=== PATIENT | male | born 1990 | race Caucasian/White ===

== ENCOUNTER 2018-04-12 13:11 | Emergency (ER) | payer OTHER, SELFPAY ==
[2018-04-12] MEDS ORDERED: Ketorolac Tromethamine 30 MG/ML VIAL ONE (14:26)
[2018-04-12] MEDS ORDERED: Adacel (T-DAP) 0.5 ML VIAL ONE (14:26)
[2018-04-12 15:23] LABS: #Basophils 0.1 thou/uL (0.0-0.2); #Eosinphils 0.1 thou/uL (0.0-0.7); #Lymphocytes 1.6 thou/uL (1.20-3.40); #Monocytes 0.6 thou/uL (0.11-0.59); #Neutrophils 11.3 thou/uL (1.40-6.50); %Basophils 0.4 % (0.0-1.0); %Eosinophils 0.6 % (0.0-10.0); %Lymphocytes 11.8 % (21.0-51.0); %Monocytes 4.5 % (0.0-10.0); %Neutrophils 82.6 % (42.0-75.0); Hemoglobin 13.7 g/dL (14.0-18.0); Mean Corpuscular HGB CONC 35.3 g/dL (32.0-36.0); Mean Corpuscular Hemoglobin 30.7 pg (27.0-31.0); Mean Corpuscular Volume 86.9 fL (78.0-98.0); Mean Platelet Volume 6.9 fL (7.4-10.4); Platelet Count 305 thou/uL (130-400); RBC Distribution Width 10.9 % (11.5-14.5); Red Blood Cell (RBC) Count 4.48 mill/uL (4.70-6.10); White Blood Cell (WBC) Count 13.7 thou/uL (4.8-10.8)
[2018-04-12 15:41] LABS: ALT (SGPT) 32 U/L (8-55); AST (SGOT) 23 U/L (5-34); Albumin 4.4 g/dL (3.5-5.0); Alkaline Phosphatase 85 U/L (40-150); Anion Gap 11 mmol/L (10-20); BUN (Urea Nitrogen) 15 mg/dL (8.9-20.6); Bilirubin, Total 0.5 mg/dL (0.2-1.2); Calc. Creatinine Clearance 0 mL/min (70-130); Calcium 9.5 mg/dL (7.8-10.44); Carbon Dioxide 26 mmol/L (22-29); Chloride 103 mmol/L (98-107); Estimated GFR-MDRD 84; Globulin 3.3 g/dL (2.4-3.5); Glucose 93 mg/dL (70-105); Potassium 4.3 mmol/L (3.5-5.1); Protein, Total 7.7 g/dL (6.0-8.3); Sodium 136 mmol/L (136-145)
[2018-04-12] MEDS ORDERED: Piperacillin/Tazobactam 4.5 GM VIAL ONE (16:02)
--- NOTE | 2018-04-13 08:01 | CON ---
DATE OF CONSULTATION: 04/12/2018 CHIEF COMPLAINT: Right thumb pain. HISTORY OF PRESENT ILLNESS: Mr. Pfeiffer is a 28-year-old male who began having thumb pain 3 days ago. This worsened significantly over the last 2 days. He began having swelling, erythema, and increased pain. He had a small callus over the palmar aspect of the thumb. This is where his pain began. He presented to an urgent care yesterday and antibiotics were prescribed. He failed to obtain these be cause he says they were expensive. He worsened overnight. He presented to the Emergency Department today. He has been afebrile since arrival. An IV is being started currently. PAST MEDICAL HISTORY: He denies active medical problems. He has had a previous abscess on the right forearm. PAST SURGICAL HISTORY: Negative. SOCIAL HISTORY: The patient occasionally uses alcohol. No cigarettes. No drug use. The patient wo rks for [employer]. FAMILY MEDICAL HISTORY: Noncontributory. REVIEW OF SYSTEMS: Positive for severe right hand and arm pain. IMAGES: X-rays of the right hand demonstrate no bony abnormality. The patient does have soft tissue swelling of the thumb. PHYSICAL EXAMINATION: VITAL SIGNS: Stable. The patient is afebrile, normotensive, 98% on room air. GENERAL: He is alert and oriented, sitting upright, in no apparent distress. RESPIRATORY: Breathing comfortably. ABDOMEN: Soft, nontender, nondistended. MUSCULOSKELETAL: The patient's right hand has fusiform swelling. He has pain to palpation. He is t pilo to palpation along the flexor tendon as well as dorsally along the extensor tendon. He is able to very minimally flex the thumb. He rests in a slightly flexed posture. He has mild tenderness al brian the palm as well. There is no significant edema or swelling of the forearm. No open wounds. No draining purulence. Sensation is intact distally. Two-second capillary refill. IMPRESSION: Right thumb flexor tenosynovitis. PLAN: At this point, I had a long discussion with the patient regarding the severity of his infectio n. He needs surgical irrigation and debridement as well as intravenous antibiotics. He will obtain an IV and be given vancomycin and Zosyn in the Emergency Department. Unfortunately, he declines surg rock and declines to be admitted to the hospital at this point. He repeatedly tells me he needs to go home to arrange care for his dog and to talk to his work and boss. I emphasized the severity of inf ection repeatedly. Explained to him that he could have worsening of his infection that can lead to n ecrosis of the thumb and possible amputation. His infection is already too widespread to have any si gnificant chance of resolving with oral antibiotics. I encouraged him to come back to the hospital o nce he makes his arrangements for surgical treatment. Questions were answered. Again, the patient i s choosing to decline surgery against medical advice.
== END 2018-04-12 18:52 | disposition home or self-care (01) ==
LOC: ERS 13:11
DX: M65.841 Other synovitis and tenosynovitis, right hand (principal); F32.9 Major depressive disorder, single episode, unspecified; F90.9 Attention-deficit hyperactivity disorder, unspecified type; Z87.891 Personal history of nicotine dependence
CPT/HCPCS: 36415; 80053; 85025; 87040; 87149; 90471; 90715; 94760; 96365; 96367; 96375; J1885; J2543; J3370

== ENCOUNTER 2018-04-13 10:40 | Inpatient (IN) | payer SELFPAY ==
[2018-04-13 11:19] LABS: #Eosinphils 0.1 thou/uL (0.0-0.7); #Lymphocytes 1.6 thou/uL (1.20-3.40); #Monocytes 0.5 thou/uL (0.11-0.59); #Neutrophils 10.4 thou/uL (1.40-6.50); %Basophils 0.2 % (0.0-1.0); %Eosinophils 0.5 % (0.0-10.0); %Lymphocytes 12.4 % (21.0-51.0); %Monocytes 3.8 % (0.0-10.0); %Neutrophils 83.1 % (42.0-75.0); Hemoglobin 13.7 g/dL (14.0-18.0); Mean Corpuscular HGB CONC 34.9 g/dL (32.0-36.0); Mean Corpuscular Hemoglobin 30.5 pg (27.0-31.0); Mean Corpuscular Volume 87.5 fL (78.0-98.0); Platelet Count 283 thou/uL (130-400); RBC Distribution Width 11.1 % (11.5-14.5); Red Blood Cell (RBC) Count 4.48 mill/uL (4.70-6.10); White Blood Cell (WBC) Count 12.5 thou/uL (4.8-10.8)
[2018-04-13 11:33] LABS: ALT (SGPT) 28 U/L (8-55); AST (SGOT) 20 U/L (5-34); Albumin 4.3 g/dL (3.5-5.0); Alkaline Phosphatase 80 U/L (40-150); Anion Gap 12 mmol/L (10-20); BUN (Urea Nitrogen) 13 mg/dL (8.9-20.6); Bilirubin, Total 0.5 mg/dL (0.2-1.2); Calc. Creatinine Clearance 0 mL/min (70-130); Calcium 9.6 mg/dL (7.8-10.44); Carbon Dioxide 25 mmol/L (22-29); Chloride 102 mmol/L (98-107); Estimated GFR-MDRD 90; Globulin 3.6 g/dL (2.4-3.5); Glucose 100 mg/dL (70-105); Protein, Total 7.9 g/dL (6.0-8.3); Sodium 135 mmol/L (136-145)
[2018-04-13] MEDS ORDERED: Piperacillin/Tazobactam 4.5 GM VIAL ONE (12:06)
--- NOTE | 2018-04-13 12:16 | HP ---
CHIEF COMPLAINT: Right thumb pain. HISTORY OF PRESENT ILLNESS: Mr. Pfeiffer is a 28-year-old male who I saw yesterday afternoon in the [facility] department. At that point, the patient had flexor tenosynovitis of the right thumb which was worsening. He had been prescribed antibiotics from an urgent care previously, but did not fill this. Yesterday I recommended surgical intervention as well as admission for intravenous antibiotics. Un fortunately, the patient declined that treatment and left AMA. He now has returned back to the emerg ency department with worsening pain. He has a worsening infection of the thumb and now desires surgi gab intervention. No new complaints, but he does have worsening of his symptoms from yesterday. He was prescribed antibiotics again yesterday, but did not fill these and has not started antibiotics. He was given a dose of vancomycin and Zosyn in the emergency room yesterday. PAST MEDICAL HISTORY: Negative other than previous abscess of forearm. PAST SURGICAL HISTORY: Negative. SOCIAL HISTORY: The patient denies tobacco, alcohol, or drug use. FAMILY MEDICAL HISTORY: Noncontributory. REVIEW OF SYSTEMS: Positive for severe right thumb pain. PHYSICAL EXAMINATION: VITAL SIGNS: Afebrile currently. Normotensive 98% on room air. GENERAL: He is alert and oriented, no apparent distress, sitting upright. RESPIRATORY: Breathing comfortably. ABDOMEN: Soft, nontender, nondistended. MUSCULOSKELETAL: The patient's right thumb has fusiform swelling. He is unable to flex and extend t he digit. He has palmar tenderness. He has erythema and warmth of the thumb. No open wounds or maris inage. Sensation is somewhat diminished in the tip of the thumb. Two second capillary refill. IMPRESSION: Advanced right thumb flexor tenosynovitis now chronic. PLAN: At this point, the patient needs urgent irrigation and debridement of the thumb. I will take him to the operating room for this. He will need to have long-term intravenous antibiotics. He has a severe infection and will likely need possibly further surgery. He is aware of the risk and benefi ts of surgery. He has made his problem worse by putting off surgery and going home last night. We w ill start vancomycin and Zosyn and get him to the operating room today. He will remain n.p.o. He wi ll have pain control.
[2018-04-13] MEDS ORDERED: Milk Of Magnesia 30 ML UDCUP PO PRN (12:53)
[2018-04-13] MEDS ORDERED: Ondansetron HCl/PF 4 MG/2 ML Vial IV PRN (12:53)
[2018-04-13] MEDS ORDERED: Communication Order-Pharmacy FS SCH (13:00)
[2018-04-13] MEDS ORDERED: Morphine 10 MG/ML VIAL ONE (13:06)
--- NOTE | 2018-04-13 13:16 | OP ---
DATE OF OPERATION: 04/13/2018 OPERATION: Irrigation and debridement of right thumb flexor tenosynovitis. PREOPERATIVE DIAGNOSIS: Chronic right thumb flexor tenosynovitis. POSTOPERATIVE DIAGNOSIS: Chronic right thumb flexor tenosynovitis. COMPLICATIONS: None. ESTIMATED BLOOD LOSS: Minimal. SURGEON: Christophe Lechuga M.D. ANESTHESIA: General plus local. INDICATIONS: Mr. Pfeiffer is a 28-year-old male who has a severe infection of the thumb which has progr essed to have flexor tenosynovitis. He has been indicated for surgical irrigation and debridement to hopefully control the infection and salvage his thumb. He has a chronic infection and is aware that he will have a severe and prolonged recovery from this. He will need antibiotics intravenously. Ri sks have been reviewed. They do include necrosis of the thumb, chronic wounds, loss of function, chr onic stiffness, pain, and others. He has possibility of needing further surgery if this infection do es not clear. DESCRIPTION OF PROCEDURE: Mr. Pfeiffer was identified in the preoperative holding area. His correct ex tremity was marked. He was carried to the operating room. He was positioned supine. General anesth esia was induced. A multidisciplinary timeout was performed. The right upper extremity was prepped and draped in sterile fashion. We began the procedure with exsanguination of the limb. The tourniquet was inflated. At this point, we made an incision over the flexor crease of the thumb. We dissected down through the subcutaneous tissues and entered the flexor tendon sheath. Purulent material was identified. We cultured this. We then thoroughly irrigated this wound. Next, we moved to the more proximal aspect of the palm. W e made a secondary incision. We raised a small flap of tissue and brought herself down onto the flex or tendon sheath at the A1 jonas. This was incised. Again, we encountered purulent material. At t his point, we introduced an Angiocath into the tendon sheath and irrigated between the 2 incisions. We thoroughly irrigated with copious lavage using Betadine and our lavage. We again debrided and irr igated the remainder of the wounds. Once we had a thorough irrigation and there was no further purul ent material, we packed these wounds in an open fashion using iodoform gauze. At this point, we plac ed a bandage after placing local anesthetic. The patient was taken to the recovery room in good cond ition without complication.
[2018-04-13] MEDS ORDERED: Promethazine HCl 25 MG/ML VIAL IM PRN (14:06)
[2018-04-13] MEDS ORDERED: Promethazine HCl 25 MG/ML VIAL SLOW IVP PRN (14:06)
[2018-04-13] MEDS ORDERED: Ondansetron HCl/PF 4 MG/2 ML Vial IVP PRN (14:06)
[2018-04-13] MEDS ORDERED: Fentanyl 100 MCG/2 ML VIAL ONE ×2 (14:10→14:41)
[2018-04-13] MEDS ORDERED: PHARMACY TO DOSE VANCOMYCIN IVPB PRN (14:25)
[2018-04-13] MEDS ORDERED: PROPOFOL 200 MG/20 ML VIAL ONE (14:40)
[2018-04-13 17:44] VITALS: BMI 21.7
[2018-04-13] MEDS: HYDROcodone/Acetaminophen 10/325 mg Tablet PO PRN (18:06)
[2018-04-13] MEDS: Piperacillin/Tazobactam 3.375 GM in Sodium Chloride 0.9% 100 ML IVPB SCH ×2 (18:07→23:55)
[2018-04-13] MEDS: Ketorolac Tromethamine 30 MG/ML VIAL IVP SCH ×2 (18:07→23:56)
[2018-04-13] MEDS: Vancomycin HCl 1 GM in Premix Bag 1 BAG IVPB SCH (20:15)
[2018-04-14] MEDS: Vancomycin HCl 1 GM in Premix Bag 1 BAG IVPB SCH ×3 (04:10→19:37)
[2018-04-14 05:28] LABS: #Eosinphils 0.3 thou/uL (0.0-0.7); #Monocytes 0.4 thou/uL (0.11-0.59); %Basophils 0.5 % (0.0-1.0); %Eosinophils 4.4 % (0.0-10.0); %Lymphocytes 29.8 % (21.0-51.0); %Neutrophils 59.3 % (42.0-75.0); Hemoglobin 13.8 g/dL (14.0-18.0); Mean Corpuscular HGB CONC 34.4 g/dL (32.0-36.0); Mean Corpuscular Hemoglobin 30.8 pg (27.0-31.0); Mean Corpuscular Volume 89.5 fL (78.0-98.0); Platelet Count 238 thou/uL (130-400); RBC Distribution Width 11.1 % (11.5-14.5); Red Blood Cell (RBC) Count 4.49 mill/uL (4.70-6.10); White Blood Cell (WBC) Count 6.8 thou/uL (4.8-10.8)
[2018-04-14] MEDS: Piperacillin/Tazobactam 3.375 GM in Sodium Chloride 0.9% 100 ML IVPB SCH ×4 (05:52→23:15)
[2018-04-14] MEDS: Ketorolac Tromethamine 30 MG/ML VIAL IVP SCH ×3 (05:56→18:05)
[2018-04-14] MEDS: HYDROcodone/Acetaminophen 10/325 mg Tablet PO PRN ×2 (10:03→15:22)
[2018-04-14 11:17] LABS: Vancomycin, Trough 12.3 ug/mL
[2018-04-14] MEDS: traMADol HCl 50 MG TAB PO PRN (18:05)
[2018-04-15] MEDS: Vancomycin HCl 1 GM in Premix Bag 1 BAG IVPB SCH ×3 (03:22→20:20)
[2018-04-15] MEDS: HYDROcodone/Acetaminophen 10/325 mg Tablet PO PRN ×5 (05:04→23:54)
[2018-04-15] MEDS: Piperacillin/Tazobactam 3.375 GM in Sodium Chloride 0.9% 100 ML IVPB SCH ×4 (05:05→23:54)
[2018-04-15] MEDS: traMADol HCl 50 MG TAB PO PRN (18:35)
[2018-04-16] MEDS: Vancomycin HCl 1 GM in Premix Bag 1 BAG IVPB SCH (04:26)
[2018-04-16] MEDS: Piperacillin/Tazobactam 3.375 GM in Sodium Chloride 0.9% 100 ML IVPB SCH (05:52)
[2018-04-16] MEDS: HYDROcodone/Acetaminophen 10/325 mg Tablet PO PRN (05:53)
[2018-04-16 08:00] VITALS: BP 112/65; TEMP 98.3
--- NOTE | 2018-04-17 15:33 | DIS ---
DATE OF ADMISSION: 04/13/2018 DATE OF DISCHARGE: 04/16/2018 REASON FOR ADMISSION: Right thumb swelling ATTENDING PHYSICIAN: Dr. Christophe Lechuga PREOPERATIVE DIAGNOSIS: Chronic right thumb flexor tenosynovitis. POSTOPERATIVE DIAGNOSIS: Chronic right thumb flexor tenosynovitis. PROCEDURE PERFORMED: Irrigation and debridement right thumb flexor tenosynovitis. BRIEF HOSPITAL COURSE: Mr. Pfeiffer is a 28-year-old male who has had a severe infection of the thumb w hich has progressed to have flexor tenosynovitis. He was indicated for surgical irrigation and debri kecia to control the infection and salvage his thumb. Due to this chronic infection he was aware th at he will have a severe and prolonged recovery. He underwent surgical procedure as listed above. P ostoperatively, he was admitted to the surgical floor where he received IV antibiotics and wound care . He underwent wound care teaching for at home packing of his wound. He waited for his cultures to grow out which showed MRSA. The patient was then placed on p.o. antibiotics of rifampin and Bactrim for home discharge. The patient was concerned about being able to afford IV antibiotics. DISCHARGE DISPOSITION: Home. DISCHARGE CONDITION: Stable. DISCHARGE INSTRUCTIONS: The patient will perform daily wound care packing as instructed. He will ta ke p.o. antibiotics as instructed. We would like to see him in the [facility] for followup in 7 -10 days for reevaluation. DISCHARGE MEDICATIONS: See JILLIAN.
== END 2018-04-16 10:54 | disposition home or self-care (01) | DRG 514 ==
LOC: ERS 10:40 → SJJU 12:00 → ERS 12:21 → SJJU 17:29
PROVIDERS: ADMIT Orthopaedic Surgery; ATTEND Orthopaedic Surgery
PROC: 0LB70ZZ Excision of Right Hand Tendon, Open Approach (ICD-10-PCS; principal; 2018-04-13)
DX: M65.841 Other synovitis and tenosynovitis, right hand (principal)
CPT/HCPCS: 36415; 80053; 80202; 83605; 85025; 87070; 87077; 87186; 87205; 96361; 96374; 96375; J1885; J2270; J2543; J2704; J3010; J3370; J7050